=== PATIENT | male | born 1990 | race Caucasian/White ===

== ENCOUNTER 2018-09-19 18:25 | Emergency (ER) | payer OTHER ==
[~2018-09-19] VITALS: Ht 182.9 cm; Wt 86.2 kg
[2018-09-19] MEDS ORDERED: ACTICIN 5% CREA60 G1 TOP (19:12)
[2018-09-19 19:32] VITALS: BP 131/89
== END 2018-09-19 19:30 | disposition home or self-care (01) ==
LOC: ER 18:25
DX: B88.8 Other specified infestations (principal); F41.9 Anxiety disorder, unspecified; R20.8 Other disturbances of skin sensation; F17.210 Nicotine dependence, cigarettes, uncomplicated; Z90.49 Acquired absence of other specified parts of digestive tract; Z90.89 Acquired absence of other organs